=== PATIENT | female | born 1980 | race Caucasian/White ===

== ENCOUNTER 2017-01-07 03:44 | Emergency (ER) | payer SELFPAY ==
[~2017-01-07] VITALS: Ht 170.2 cm; Wt 81.0 kg
[~2017-01-07 03:44] MED LIST: PNV1TABL43 PO
[2017-01-07 03:46] VITALS: Ht 170.2 cm; Wt 81.0 kg
[2017-01-07] MEDS ORDERED: FAMOTIDINE 20 MG TAB PO ONE (04:30)
[2017-01-07] MEDS ORDERED: LIDOCAINE/MYLANTA 40 ML BTL PO ONE (04:30)
--- NOTE | 2017-01-07 04:30 | ERD ---
ER Documentation Chief Complaint Date/Time DATE: 01/07/17 TIME: 04:28 Chief Complaint EPIGASTRIC SHARP PAIN AWOKEN FROM SLEEP, DENIES N/V. HPI This 36-year-old female presenting to emergency department today for epigastric pain. Patient reports pain woke her up from sleep. Reports that she ate spicy tacos last night prior to bed.Patient has history of epigastric pain in the past Reports no prophylactic treatment for her epigastric pain. Patient denies any burning in her chest or chest pain. Denies a sour taste in her mouth , shortness of breath palpitations or dyspnea. ROS All systems reviewed and are negative except as per history of present illness. Medications Home Meds Reported Medications Vit/Fe Fumarate/Fa* ( Vitamin Tablet*) 1 Tab Tablet, 1 TAB PO DAILY, TAB 07/16/14 Allergies Allergies: Coded Allergies: No Known Allergy (Verified , 07/16/14) PMhx/Soc Medical and Surgical Hx: pt denies Medical Hx, pt denies Surgical Hx History of Surgery: No Anesthesia Reaction: No Hx Neurological Disorder: No Hx Respiratory Disorders: No Hx Cardiac Disorders: No Hx Psychiatric Problems: No Hx Miscellaneous Medical Probl: No Hx Alcohol Use: No Hx Substance Use: No Hx Tobacco Use: No Smoking Status: Unknown if ever smoked Physical Exam Vitals Vital Signs Date Time Temp Pulse Resp B/P Pulse Ox O2 Delivery O2 Flow Rate FiO2 01/07/17 03:46 96.8 60 17 119/67 100 Physical Exam Const: No acute distress Head: Atraumatic Eyes: ENT: Normal External Ears, Nose and Mouth, mucous membranes Neck: Full range of motion..~ No meningismus. Resp: Chest rise and fall symmetrically, clear to auscultation bilaterally Cardio: Regular rate and rhythm, no murmurs Abd: Epigastric tenderness Skin: Back: Ext: Neur: Awake and alert Psych: Normal Mood and Affect Results 24 hrs Current Medications Medications (Trade) Dose Ordered Sig/Sridevi Route PRN Reason Start Time Stop Time Status Last Admin Dose Admin Miscellaneous Medication (Gi Cocktail (2)) 40 ml ONCE ONCE PO 01/07/17 04:30 01/07/17 04:31 DC 01/07/17 04:36 Famotidine (Pepcid) 20 mg ONCE ONCE PO 01/07/17 04:30 01/07/17 04:31 DC 01/07/17 04:36 Procedures/MDM This pleasant 36-year-old female presents to the emergency department today with epigastric pain that woke her from sleep. Patient ate spicy food prior to bedtime, history of epigastric pain in the past without full evaluation or diagnosis of GERD. Acute coronary syndromes, is not likely, patient denies chest pain shortness of breath or palpitations. Patient is treated with a GI cocktail and Pepcid while in emergency department, reassessed after 30 minutes with improvement of symptoms. Patient will be discharged home with Pepcid 40 mg daily, dietary restrictions, GERD teaching, follow-up with primary care physician for full evaluation and continued Pepcid if indicated. Return to emergency room for vomiting blood, pain not improving as suspected, cough, chest pain. I feel the patient is stable for discharge at this time with outpatient management and follow-up with primary care physician. I have discussed results, examination findings, the treatment plan with the patient and family present prior to discharge. Indications for emergent reevaluation, side effects of medication were also discussed. All questions were answered. Patient verbalizes understanding and agrees with plan of care. Departure Diagnosis: Primary Impression: Epigastric pain Condition: Good Patient Instructions: Epigastric Pain (Uncertain Cause) Referrals: [facility] Additional Instructions: Thank you for for coming to [facility] for your care today. Please ask your nurse or provider if you have questions about your care today and do not leave until all your questions have been answered. Please use any medications given as directed and follow-up with your doctor (or the doctor you were referred to) in the next 2-3 days. If you do not have a primary care doctor you may follow up at the [facility] (listed below). You may also use motrin and tylenol as needed for fever and/or pain unless instructed otherwise by your provider or nurse. Indications for more urgent follow-up have been discussed, but you may return to the Emergency Department at ANY time for any worrisome or worsening symptoms. If you have abdominal pain, please know that no test or exam you received is perfect and you should follow up within 8 hours for continued pain. If you had any imaging studies today, such as an X-Ray or CT Scan, these studies will be reviewed later by a radiologist. You will be called if there are important findings that were not identified today, so make sure the contact information you provided at registration is correct. If you received any narcotic pain control medicine today, such as Vicodin, Morphine or Dilaudid, your coordination and judgment may be affected for a number of hours. Please do not drive or operate heavy machinery, and you may want someone to assist you at home. If you were given a prescription for narcotic medication, be aware that it is very addictive- use sparingly and only if necessary. ASHLEY CANNON Jan 07, 2017 04:30
[2017-01-07] MEDS ORDERED: FAMO-18 PO (05:21)
== END 2017-01-07 05:43 | disposition home or self-care (01) ==
LOC: FTE 03:44
DX: R10.13 Epigastric pain (principal)
CPT/HCPCS: 99283